=== PATIENT | male | born 1940 | race Caucasian/White ===

== ENCOUNTER → 2024-11-12 14:47 | Outpatient (CLI) | payer MEDICARE, SELFPAY ==
--- NOTE | 2024-11-12 14:48 | DI.ECHO.S_ITS ---
Version: 1 Study ID: [id number] [place] [address] Name: PAM MCDERMOTT JR, V Study Date: 11/12/2024, 3: 13 PM : 1940 BP: 145 / 78 mmHg Gender: Male Height: 69 in Age: 84 Years Weight: 275 lb BSA: 2.37 mA??? Ordering: BOY ARZOLA Referring: BOY ARZOLA Clinician: Giancarlo Webster Reason For Study: MOORE History: Summary Statements 1) Normal left ventricular size, wall motion, and systolic function (EF 60-65%). 2) Mildly enlarged right ventricle with normal function. 3) Severe left atrial enlargement present. Grade II diastolic dysfunction with elevated left atrial pressure. 4) There is mild aortic stenosis (valve area 2.0cm2, mean gradient 7mmHg). 5) There is a trivial to small pericardial effusion noted. 6) No prior Echo available for comparison. Procedure: A two-dimensional transthoracic echocardiogram with color flow and Doppler was performed. The study quality was technically adequate. There is no prior echocardiogram noted for this patient. The heart rate ranged between 62-73 bpm during the study. Left Ventricle: The left ventricle is normal in size. Left ventricular wall thickness is mildly increased. Left ventricular systolic function is normal. The ejection fraction is estimated to be 60-65%. There are no focal wall motion abnormalities. Grade II diastolic dysfunction with elevated left atrial pressure. Right Ventricle: The right ventricle is mildly dilated. The right ventricular systolic function is normal. Atria: The left atrium is severely dilated. The right atrium is moderate to severely dilated. There is no Doppler evidence for an interatrial shunt. Mitral Valve: There is mild mitral annular calcification. The mitral valve leaflets appear to open well. There is no mitral valve stenosis. There is trace mitral regurgitation. Aortic Valve: Aortic valve leaflets not well visualized. The peak aortic velocity is 1.9 m/sec. The aortic valve mean gradient is 6.9 mmHg. There is mild aortic stenosis. No aortic regurgitation is present. Tricuspid Valve: The tricuspid valve is not well visualized. There is mild tricuspid regurgitation. The right ventricular systolic pressure is estimated to be at least 25 mmHg based on an estimated right atrial pressure of 3 mm Hg. Pulmonic Valve: The pulmonic valve is not well seen, but is grossly normal. There is trace pulmonic regurgitation. Great Vessels: The aortic root is normal size. The ascending aorta could not be visualized. The aortic arch could not be visualized. The IVC is of normal diameter and collapses greater than 50% with a sniff. This suggests a low right atrial pressure of 3 mm Hg. Pericardium/ Pleura: There is a trivial to small pericardial effusion noted. 2D and M-Mode Measurements and Calculations LVIDd: 5.0 cm LVOT diam: 2.12 cm LVIDs: 3.0 cm Ao root diam: 3.1 cm IVSd: 1.28 cm asc Aorta Diam: 2.6 cm LVPWd: 1.31 cm LV negron. diameter/BSA (cm/m^2): 2.10 LV sys. diameter/BSA (cm/m^2): 1.25 EPSS: 0.65 cm RVD1 (basal): 3.3 cm RVD2 (mid): 2.6 cm TAPSE: 1.66 cm LA A4 area: 30.1 adult services librarian??? IVC diam: 1.88 cm LA A2 area: 31.8 adult services librarian??? RA area: 26.4 adult services librarian??? LA length (vol): 6.9 cm RA long axis: 6.9 cm LA vol: 117.7 ml RA vol: 85.8 ml LA vol index: 49.8 ml/mA??? RA : 36.3 ml/mA??? Doppler Measurements and Calculations Ao V2 max: 191.0 cm/sec LVOT Max Reyes: 105.0 cm/sec Ao V2 mean: 119.5 cm/sec LV V1 max P.4 mmHg Ao V2 VTI: 36.5 cm LV V1 VTI: 21.0 cm Ao max P.6 mmHg SV(LVOT): 74.0 ml Ao mean P.9 mmHg SHAUNA(I,D): 2.03 adult services librarian??? SHAUNA(V,D): 1.93 adult services librarian??? SHAUNA indexed to BSA (cm^2/m^2): 0.86 sev ratio: 0.58 MV E max reyes: 115.8 cm/sec MV dec time: 0.20 sec Med Peak E' Reyes: 8.2 cm/sec Lat Peak E' Reyes: 10.2 cm/sec E/e' average: 12.8 TR max reyes: 234.6 cm/sec PA mean P.6 mmHg TR max P.0 mmHg PA V2 max: 114.6 cm/sec Electronically signed by: Boy Arzola 11/12/2024, 9: 27 PM
== END ==
LOC: ECHO 14:48
PROVIDERS: Referring Provider Internal Medicine Cardiovascular Disease; Visit Provider Internal Medicine Cardiovascular Disease
DX: I08.2 Rheumatic disorders of both aortic and tricuspid valves (principal); I31.39 Other pericardial effusion (noninflammatory); R06.09 Other forms of dyspnea
CPT/HCPCS: 93306

== ENCOUNTER → 2025-01-15 10:58 | Outpatient (CLI) | payer MEDICARE, SELFPAY ==
[2025-01-15 12:43] LABS: Blood Urea Nitrogen 32 mg/dL (9-20); Calcium 9.4 mg/dL (8.4-10.2); Carbon Dioxide 25 mmol/L (22-32); Chloride 107 mmol/L (98-107); Estimated Glomerular Filt Rate 44 mL/min (>60); Glucose 118 mg/dL (70-99); HEMOLYSIS < 15 (0-50); Potassium 4.3 mmol/L (3.4-5.1); Sodium 146 mmol/L (137-145)
== END ==
PROVIDERS: PCP Physician Assistant; Referring Provider Nurse Practitioner; Visit Provider Nurse Practitioner
DX: I42.8 Other cardiomyopathies (principal); I50.31 Acute diastolic (congestive) heart failure
CPT/HCPCS: 36415; 80048

== ENCOUNTER → 2025-02-12 12:04 | Outpatient (CLI) | payer MEDICARE, SELFPAY ==
--- NOTE | 2025-02-12 12:07 | DI.ECHO.S_ITS ---
[facility]+ [facility] : : [id number] : : [place] : : [id number] : : Phone: [phone] Echocardiogram Report + + :Name: PAM MCDERMOTT JR, V Study Date: 02/12/2025 Height: 70 in : :Hospital ReadingLocation: Weight: 270 lb : : Gender: Male BSA: 2.4 m2 : :: 1940 Age: 84 yrs BP: 144/72 mmHg: :Reason For Study: Pericardial effusion : :Ordering Physician: AMARA, : :BOY Performed By: Giancarlo Webster : :Referring: BOY ARZOLA : + + Interpretation Summary Limited Echo: There is a trivial to small pericardial effusion noted. This is unchanged from the prior study. There is a large left-sided pleural effusion. This wasn't visualized in the prior study. Procedure: A two-dimensional transthoracic echocardiogram with color flow and Doppler was performed in limited views only to assess pericardial effusion. The heart rate ranged between 85-96 bpm during the study. Left Ventricle: The ejection fraction is estimated to be 60-65%. Tricuspid Valve: There is mild to moderate tricuspid regurgitation. The right ventricular systolic pressure is estimated to be at least 58 mmHg based on an estimated right atrial pressure of 3 mm Hg. Great Vessels: The IVC is of normal diameter and collapses greater than 50% with a sniff. This suggests a low right atrial pressure of 3 mm Hg. Pericardium/ Pleura There is a trivial to small pericardial effusion noted. There is a large left-sided pleural effusion. MMode/2D Measurements & Calculations IVC diam: 2.0 cm Doppler Measurements & Calculations TR max sarah: 370.7 cm/sec TR max P.0 mmHg Reading Physician:08:02 PM
== END ==
LOC: ECHO 12:06
PROVIDERS: PCP Physician Assistant; Referring Provider Internal Medicine Cardiovascular Disease; Visit Provider Internal Medicine Cardiovascular Disease
DX: I31.39 Other pericardial effusion (noninflammatory) (principal); J90 Pleural effusion, not elsewhere classified; I07.1 Rheumatic tricuspid insufficiency
CPT/HCPCS: 93307

== ENCOUNTER → 2025-03-04 10:25 | Outpatient (CLI) | payer MEDICARE, SELFPAY ==
[2025-03-04 12:21] LABS: Blood Urea Nitrogen 26 mg/dL (9-20); Calcium 9.2 mg/dL (8.4-10.2); Carbon Dioxide 26 mmol/L (22-32); Chloride 106 mmol/L (98-107); Estimated Glomerular Filt Rate 52 mL/min (>60); Glucose 114 mg/dL (70-99); HEMOLYSIS < 15 (0-50); Potassium 4.0 mmol/L (3.4-5.1); Sodium 142 mmol/L (137-145)
== END ==
PROVIDERS: PCP Physician Assistant; Referring Provider Nurse Practitioner; Visit Provider Nurse Practitioner
DX: I42.8 Other cardiomyopathies (principal); I50.31 Acute diastolic (congestive) heart failure
CPT/HCPCS: 36415; 80048